=== PATIENT | male | born 1935 | race African-American/Black ===

== ENCOUNTER 2017-10-18 09:41 | Outpatient (RCR) | payer MEDICARE, OTHER ==
[~2017-10-18] VITALS: Ht 177.8 cm; Wt 88.5 kg
[2017-10-21] MEDS ORDERED: Lidocaine 4% Top Soln 50ml TOPIC ONE (09:45)
[2017-11-01] MEDS ORDERED: LAXATIVE5 M1 PO (16:22)
[2017-11-01] MEDS ORDERED: FUROSEMIDE40 MG ORAL (16:22)
[2017-11-01] MEDS ORDERED: ACETAMINOPHEN-1 EAC1 ORAL (16:22)
[2017-11-01] MEDS ORDERED: NORVASC5 MG ORAL (16:22)
[2017-11-01] MEDS ORDERED: SILVADENE20 GM TP (16:22)
[2017-11-01] MEDS ORDERED: COREG12.5 MG ORAL (16:22)
[2017-11-01] MEDS ORDERED: VITAMIN C500 M1 ORAL (16:22)
[2017-11-05] MEDS ORDERED: BISACODYL5 MG ORAL (17:25)
[2017-11-05] MEDS ORDERED: AMBIEN5 MG ORAL (17:26)
[2017-11-05] MEDS ORDERED: TRAMADOL HCL50 MG ORAL (17:28)
[2017-11-05] MEDS ORDERED: DAKIN'S1 APPLIC TOPIC (17:29)
[2017-11-05] MEDS ORDERED: PROTONIX40 MG ORAL (17:30)
[2017-11-05] MEDS ORDERED: ZOSYN 3.373.375 GM/1 IVPB (17:30)
[2017-11-05] MEDS ORDERED: MILK OF MA400 MG/51 ORAL (17:31)
[2017-11-05] MEDS ORDERED: MYLANTA30 M1 PO (17:34)
[2017-11-05] MEDS ORDERED: NAPROXEN250 M1 PO (17:35)
== END 2017-11-12 | disposition home or self-care (01) ==
LOC: WCC 09:41
DX: L97.822 Non-pressure chronic ulcer of other part of left lower leg with fat layer exposed (principal); I87.312 Chronic venous hypertension (idiopathic) with ulcer of left lower extremity; I70.202 Unspecified atherosclerosis of native arteries of extremities, left leg; L03.116 Cellulitis of left lower limb; L97.823 Non-pressure chronic ulcer of other part of left lower leg with necrosis of muscle; I10 Essential (primary) hypertension
CPT/HCPCS: 11042; 11043; 11045; 11046; 29580; 87070; 87181; 87205

== ENCOUNTER 2017-10-25 10:59 | Outpatient (CLI) | payer MEDICARE, OTHER ==
[2017-10-25 12:10] LABS: BASOPHILS % (AUTO) 1.1 % (0.0-2.0); EOSINOPHILS % (AUTO) 2.2 % (0.0-3.0); HEMATOCRIT 32.5 % (42.0-52.0); HEMOGLOBIN 10.1 G/DL (14.2-18.0); LYMPHOCYTES % (AUTO) 15.6 % (20.0-45.0); MEAN CORPUSCULAR VOLUME 84 FL (80-99); MONOCYTES % (AUTO) 10.7 % (1.0-10.0); NEUTROPHILS % (AUTO) 70.4 % (45.0-75.0); PLATELET COUNT 244 K/UL (150-450); RED BLOOD COUNT 3.88 M/UL (4.70-6.10); RED CELL DISTRIBUTION WIDTH 15.2 % (11.6-14.8); WHITE BLOOD COUNT 6.2 K/UL (4.8-10.8)
[2017-10-25 12:25] LABS: ALANINE AMINOTRANSFERASE 13 U/L (12-78); ALBUMIN 2.7 G/DL (3.4-5.0); ALBUMIN/GLOBULIN RATIO 0.4 (1.0-2.7); ALKALINE PHOSPHATASE 63 U/L (46-116); ANION GAP 9 mmol/L (5-15); ASPARTATE AMINO TRANSFERASE 17 U/L (15-37); BILIRUBIN,TOTAL 0.7 MG/DL (0.2-1.0); BLOOD UREA NITROGEN 15 mg/dL (7-18); CALCIUM 8.7 MG/DL (8.5-10.1); CARBON DIOXIDE 25 MMOL/L (21-32); CHLORIDE 95 MMOL/L (98-107); CREATININE 1.3 MG/DL (0.55-1.30); POTASSIUM 4.7 MMOL/L (3.5-5.1); SODIUM 129 MMOL/L (136-145)
--- NOTE | 2017-10-26 10:55 | Consultation ---
DATE OF CONSULTATION: 10/25/2017 INFECTIOUS DISEASE CONSULTATION CONSULTING PHYSICIAN: Myla Woodall M.D. REQUESTING PHYSICIAN: Og Pena M.D. 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 Recommendation for antibiotics treatment. HISTORY OF PRESENT ILLNESS: The patient is an 82-year-old male with past medical history of noncompliance with medical management, who developed left ankle and leg wound 9 months ago and was followed at [facility], transferred his care to [facility] service and has been evaluated by plastic surgeon for the last couple of visits for his chronic left ankle and leg nonhealing wound. The patient had wound culture done on 10/18/2017. The results of which showed Providencia stuartii, Providencia rettgeri, E. coli and Enterococcus faecalis. Some of his Providencia were resistant to ertapenem. So, Infectious Disease consultation was requested for antibiotics treatment and further management of his left ankle and leg, nonhealing wound. As per report from the caregiver and the nurse, the patient has been noncompliant with his medical treatment of his left ankle wound, which has been interrupted on multiple occasions. He denied any previous treatment with IV antibiotics therapy. He denied also oral antibiotics intake in the past. The patient complained of mild pain in his left ankle and leg with swelling and edema, do probably because of venostasis. So, Infectious Disease consultation was requested after his wound culture grew multiple bacteria, some of them resistant antibiotics for management of his left chronic nonhealing leg wound. PAST MEDICAL HISTORY: Significant for venous stasis, mainly the left lower extremity, noncompliance, and chronic wound nonhealing in the left ankle. PAST SURGICAL HISTORY: Not on record. ALLERGIES: No known drug allergy. MEDICATIONS: Please refer to the list. The patient currently is not on any antimicrobial treatment. SOCIAL HISTORY: He lives at home with caregiver. No recent drugs, tobacco, or alcohol. FAMILY HISTORY: Unable to obtain, the patient is a poor historian, could not provide good history. REVIEW OF SYSTEMS: A 14-point of system reviewed were all negative apart from the one I mentioned above in my History and Physical. PHYSICAL EXAMINATION: GENERAL: Elderly male, lying in bed, awake, alert, hard of hearing. Not in acute distress. VITAL SIGNS: Reviewed and stable. HEENT: Normocephalic and atraumatic. Pupils are reactive to light. Moist oral mucosa. No exudate. NECK: Supple. No lymphadenopathy. CARDIOVASCULAR: Regular rate and rhythm. No murmur or gallop. LUNGS: Clear bilaterally. No wheezing or rhonchi. Normal breathing efforts. ABDOMEN: Soft, nontender, nondistended. Normal bowel sounds. No hepatosplenomegaly or ascites. EXTREMITY: He had left lower extremity cellulitis with skin redness and swelling. He had extensive deep wound from the medial aspect of his left ankle, extend all the way down to below the malleolus in the medial aspect of his left leg. There is exudate with pus on surface and red erythematous border with skin cellulitis and redness surrounding his leg wound. Pulse +1 in the distal pedal area. LABORATORY AND DIAGNOSTIC DATA: Labs showed white count of 6.2, hemoglobin of 10.1 and platelet count of 244. BUN of 15 and creatinine of 1.3. AST of 17 and ALT of 13. Microbiology, wound culture on 10/18/2017 of the left leg and ankle grew Providencia stuartii, Providencia rettgeri, E. coli and Enterococcus faecalis. Imaging, none done. ASSESSMENT AND RECOMMENDATION: 1. Left leg and ankle chronic nonhealing wound with infection due to multiple organisms including enterococcus faecalis, E coli, Providencia stuartii, and Providencia rettgeri. I recommend deep tissue biopsy to be sent for culture to confirm his previous culture result, which might be colonization at some point. The patient also will need MRI of the left leg to rule out underlying osteomyelitis as an etiology for nonhealing of his wound. Continue local wound care and dressing change as per the wound care service team. Plan of care was discussed with the caregiver and the patient and both agreed to proceed with this plan. 2. Left ankle and leg cellulitis. Management will be the same once culture is confirmed by skin biopsy. We will initiate antibiotics treatment depending on the MRI result of his left leg. Continue local wound care of the left leg as per the wound care service team. 3. Noncompliance. The patient was advised to follow instruction to improve his chance of recovery he understood. 4. Chronic venous stasis of the lower extremity, mainly in the left. The patient may benefit from leg wrap and to keep leg elevated all the time. The patient understands that antibiotics alone may not close his wound completely, but it will help to improve his chance of recovery. All questions were answered to the caregiver and the patient in detail. Please feel free to call with any question. Isam Dana Woodall DR: SUSAN JOB#: [id number] CC:
== END 2017-10-25 12:59 | disposition home or self-care (01) ==
LOC: LAB 10:59
DX: L08.9 Local infection of the skin and subcutaneous tissue, unspecified (principal); E46 Unspecified protein-calorie malnutrition
CPT/HCPCS: 36415; 80053; 84134; 85025

== ENCOUNTER 2017-11-01 09:32 | Outpatient (CLI) | payer MEDICARE, OTHER ==
[~2017-11-01] VITALS: Ht 177.8 cm; Wt 88.5 kg
--- NOTE | 2017-11-01 13:25 | Diagnostic Imaging Report ---
Indication: Left lower leg wound on medial side Technique: IV administration 24.2 mCi 99m technetium MDP. Whole body and spot images were obtained. Comparison: None. No plain radiographs or other images are available for comparison Findings: There is equivocal very slight asymmetry in the degree of activity on the flow images, with slightly more activity present on the left. Blood pool images likewise demonstrate very slightly relatively increased activity on the left as compared to the right, particularly in the cutaneous regions. On the delayed images, there is subtle slightly increased medial activity on the left which probably represents soft tissue activity. No definite abnormal osseous uptake. Impression: Subtle equivocally slightly increased flow and blood pool activity in the left leg and perhaps slightly prominent medial left leg soft tissue activity on the delayed images. Findings most likely represent cellulitis, given stated clinical history. No findings to suggest osteomyelitis are evident.
[2017-11-01] MEDS ORDERED: Lidocaine 1% Plain 30 ml INJ ONE (13:26)
[2017-11-01] MEDS ORDERED: Heparin 2000 units/Ns 1000ml 1,000 ML ONE (13:26)
--- NOTE | 2017-11-01 14:36 | Diagnostic Imaging Report ---
Indications: Needs long-term IV access Technique: Ultrasound confirms patent compressible left basilic vein. Total sterile technique, including sterile probe cover and sterile gel, hat, mask, sterile gown, large sterile drape, and preparation with 2% chlorhexidine utilized. Local anesthesia with 1% lidocaine. Under real-time ultrasound guidance, puncture basilic vein using 21-gauge needle, documented and archived, passage 0.018 guidewire under direct fluoroscopy, which was used to determine appropriate catheter length, exchange for 5 Greek peel-away sheath. 5 Greek Bard dual-lumen power PICC cut to 47 cm. It was inserted through the peel-away sheath. Peel-away sheath and guidewire removed. Catheter fixed to the skin. Both catheter ports aspirated and flushed. Patient tolerated procedure well, without immediate complication. Digital radiograph documents satisfactory catheter tip position, at the mid superior vena cava. Total fluoroscopy time 0.7 minutes. Total dose area product 74 dGycm2 Total number of images: 1 Impression: Successful placement of left arm PICC under sonographic and fluoroscopic guidance, as described above.
--- NOTE | 2017-11-01 15:31 | Infectious Diseases Prog Note ---
Assessment/Plan Problems: (1) Leg wound, left Assessment & Plan: infected with E.faecalis, Morganella morgagnii, and proteus terry , S/P deep skin biopsy culture. will start zosyn empiric coverage to cover all these organisms , and send blood culture to rule out bacteremia . will add vancomycin to cover for possible MRSA . wound care team will be following the patient (2) Left leg cellulitis Assessment & Plan: management is the same as above, with antibiotics and local wound care, keep leg elevated all the time (3) Venous stasis of lower extremity Assessment & Plan: will order venous doppler to rule out DVT , keep legs elevated all the time while in bed Subjective Allergies: Coded Allergies: NO KNOWN DRUG ALLERGIES (Verified Allergy, Unknown, 10/21/17) Myla Woodall M.D. Nov 01, 2017 15:31
[2017-11-01] MEDS ORDERED: Piperacillin/Tazobactam 3.375 GM in NS 110 ML IVPB SCH (15:45)
[2017-11-01] MEDS ORDERED: VITAMIN C500 M1 ORAL (16:22)
[2017-11-01] MEDS ORDERED: SILVADENE20 GM TP (16:22)
[2017-11-01] MEDS ORDERED: COREG12.5 MG ORAL (16:22)
[2017-11-01] MEDS ORDERED: LAXATIVE5 M1 PO (16:22)
[2017-11-01] MEDS ORDERED: FUROSEMIDE40 MG ORAL (16:22)
[2017-11-01] MEDS ORDERED: NORVASC5 MG ORAL (16:22)
[2017-11-01] MEDS ORDERED: ACETAMINOPHEN-1 EAC1 ORAL (16:22)
== END 2017-11-01 11:32 | disposition home or self-care (01) ==
LOC: NUM 09:32
DX: E46 Unspecified protein-calorie malnutrition (principal); B99.9 Unspecified infectious disease; M86.9 Osteomyelitis, unspecified; L03.116 Cellulitis of left lower limb; I87.8 Other specified disorders of veins; Z79.899 Other long term (current) drug therapy
CPT/HCPCS: 36569; 76937; 78315; A4641; J1644; J2001

== ENCOUNTER 2017-11-01 12:26 | Inpatient (IN) | payer MEDICARE, OTHER ==
[~2017-11-01] VITALS: Ht 180.3 cm; Wt 86.6 kg
[2017-11-01] MEDS ORDERED: Heparin Sod 1000 units/ml 10ml IV SCH (13:00)
[2017-11-01] MEDS ORDERED: Lidocaine 1% Plain 30 ml INJ SCH (13:00)
[2017-11-01] MEDS ORDERED: Bisacodyl EC 5mg tab ORAL PRN ×2 (16:15)
[2017-11-01] MEDS ORDERED: Zolpidem 5mg tab ORAL PRN (16:15)
[2017-11-01] MEDS ORDERED: Milk of Magnesia 30ml Ud ORAL PRN (16:15)
--- NOTE | 2017-11-01 16:19 | Consultation ---
Consult Note Consult Note CONSULTING PHYSICIAN: Myla Woodall M.D. REQUESTING PHYSICIAN: Og Pena M.D. 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 HISTORY OF PRESENT ILLNESS: The patient is an 82-year-old male with past medical history of chronic left leg wound, and venous stasis , and noncompliance with medical management, who was followed at [facility] for his left leg wound , has transferred his care to [facility] service for further care and management of his chronic left ankle and leg nonhealing wound. The patient had wound culture done on 10/18/2017. The results of which showed Providencia stuartii, Providencia rettgeri, E. coli and Enterococcus faecalis. Some of his Providencia were resistant to ertapenem. As per report from the caregiver and the nurse, the patient has been noncompliant with his medical treatment of his left ankle wound, which has been interrupted on multiple occasions. He denied any previous treatment with IV antibiotics therapy. He denied also oral antibiotics intake in the past. The patient complained of mild pain in his left ankle and leg with edema, because of venostasis. no significant drainage from the wound or foul smell. patient underwent a deep skin biopsy for culture, which grew Morganella morgagnii, proteus terry and enterococcus faecalis. So, Infectious Disease consultation was requested after his wound infection due to multiple bacteria, for antibiotics treatment and further management of his left chronic nonhealing leg wound. PAST MEDICAL HISTORY: Significant for venous stasis, mainly the left lower extremity, noncompliance, and chronic wound nonhealing in the left ankle. PAST SURGICAL HISTORY: Not on record. ALLERGIES: No known drug allergy. MEDICATIONS: Please refer to the list. The patient currently is not on any antimicrobial treatment. SOCIAL HISTORY: He lives at home with caregiver. No recent drugs, tobacco, or alcohol. FAMILY HISTORY: Unable to obtain, the patient is a poor historian, could not provide good history. REVIEW OF SYSTEMS: A 14-point of system reviewed were all negative apart from the one I mentioned above in my History and Physical. PHYSICAL EXAMINATION: GENERAL: Elderly male, lying in bed, awake, alert, hard of hearing. Not in acute distress. VITAL SIGNS: Reviewed and stable. HEENT: Normocephalic and atraumatic. Pupils are reactive to light. Moist oral mucosa. No exudate. NECK: Supple. No lymphadenopathy. CARDIOVASCULAR: Regular rate and rhythm. No murmur or gallop. LUNGS: Clear bilaterally. No wheezing or rhonchi. Normal breathing efforts. ABDOMEN: Soft, nontender, nondistended. Normal bowel sounds. No hepatosplenomegaly or ascites. EXTREMITY: He had left lower extremity cellulitis with skin redness and swelling. He had extensive deep wound from the medial aspect of his left ankle, extend all the way down to below the malleolus in the medial aspect of his left leg. There is exudate with pus on surface and red erythematous border with skin cellulitis and redness surrounding his leg wound. Pulse +1 in the distal pedal area. LABORATORY AND DIAGNOSTIC DATA: Labs from 10/25/17 showed: white count of 6.2, hemoglobin of 10.1 and platelet count of 244. BUN of 15 and creatinine of 1.3. AST of 17 and ALT of 13. Microbiology; wound culture on 10/18/2017 of the left leg and ankle grew Providencia stuartii, Providencia rettgeri, E. coli and Enterococcus faecalis. deep skin biopsy culture on 10/25/17 grew: Morganella morgagnii, proteus terry and enterococcus faecalis Imaging: bone scan of the left leg: Subtle equivocally slightly increased flow and blood pool activity in the left leg and perhaps slightly prominent medial left leg soft tissue activity on the delayed images. Findings most likely represent cellulitis, given stated clinical history. No findings to suggest osteomyelitis are evident. Assessment/Plan 1. Left leg and ankle chronic nonhealing wound with infection due to multiple organisms including Morganella morgagnii, proteus terry and enterococcus faecalis most likely real since grew from deep tissue biopsy. I will start him on zosyn and vancomycin treatment for now, and send blood culture . MRI of the left leg to rule out underlying osteomyelitis couldn't be done due to pacemaker, but bone scan was done instead which showed no evidence of osteomyelitis. will order venous doppler to rule DVT in the legs . Continue local wound care and dressing change as per the wound care service team. Plan of care was discussed with the caregiver and the patient and both agreed to proceed with this plan. 2. Left ankle and leg cellulitis. Management will be the same as above. Continue local wound care of the left leg as per the wound care service team. 3. Chronic venous stasis of the lower extremity, mainly in the left. The patient may benefit from leg wrap and to keep leg elevated all the time. The patient understands that antibiotics alone may not close his wound completely, but it will help to improve his chance of recovery. All questions were answered to the caregiver and the patient in detail. infectious disease will continue to follow , Please feel free to call with any question. Myla Woodall M.D. Nov 01, 2017 16:19
[2017-11-01] MEDS ORDERED: VITAMIN C500 M1 ORAL (16:22)
[2017-11-01] MEDS ORDERED: COREG12.5 MG ORAL (16:22)
[2017-11-01] MEDS ORDERED: SILVADENE20 GM TP (16:22)
[2017-11-01] MEDS ORDERED: NORVASC5 MG ORAL (16:22)
[2017-11-01] MEDS ORDERED: ACETAMINOPHEN-1 EAC1 ORAL (16:22)
[2017-11-01] MEDS ORDERED: LAXATIVE5 M1 PO (16:22)
[2017-11-01] MEDS ORDERED: FUROSEMIDE40 MG ORAL (16:22)
[2017-11-01 16:27] VITALS: BP 117/58
[2017-11-01 16:38] LABS: BASOPHILS % (AUTO) 1.1 % (0.0-2.0); EOSINOPHILS % (AUTO) 3.5 % (0.0-3.0); HEMATOCRIT 32.6 % (42.0-52.0); HEMOGLOBIN 10.5 G/DL (14.2-18.0); LYMPHOCYTES % (AUTO) 13.5 % (20.0-45.0); MEAN CORPUSCULAR VOLUME 85 FL (80-99); MONOCYTES % (AUTO) 12.1 % (1.0-10.0); NEUTROPHILS % (AUTO) 69.8 % (45.0-75.0); PLATELET COUNT 360 K/UL (150-450); RED BLOOD COUNT 3.85 M/UL (4.70-6.10); RED CELL DISTRIBUTION WIDTH 15.3 % (11.6-14.8); WHITE BLOOD COUNT 6.7 K/UL (4.8-10.8)
[2017-11-01 16:51] LABS: ANION GAP 9 mmol/L (5-15); BLOOD UREA NITROGEN 21 mg/dL (7-18); CALCIUM 8.9 MG/DL (8.5-10.1); CARBON DIOXIDE 28 MMOL/L (21-32); CHLORIDE 95 MMOL/L (98-107); CREATININE 1.4 MG/DL (0.55-1.30); SODIUM 132 MMOL/L (136-145)
[2017-11-01] MEDS: Piperacillin/Tazobactam 3.375 GM in NS 110 ML IVPB SCH (18:33)
--- NOTE | 2017-11-01 20:30 | History and Physical Report ---
DATE OF ADMISSION: 11/01/2017 REASON FOR ADMISSION: Wound infection. HISTORY OF PRESENT ILLNESS: This is an 82-year-old male, who has been cared for at the wound care center. The patient was noted to have an infected wound. He had been admitted for nonhealing wound. The patient with noted Morganella on culture including Proteus and enterococcus. The patient now being admitted. ID consultation was obtained. The patient has chronic left leg wound and venous stasis, noncompliant with medical management. The patient apparently had been followed by an outside wound care center. The patient was transferred to [place] for ongoing care and management. The patient had a wound culture done on 10/18/2017 showing the above multi-drug resistance noted. The patient is cared for at home with caregivers. Apparently, noncompliant with therapy at present. The patient complains of pain in left ankle with some edema. The patient does have significant venous stasis. PAST MEDICAL HISTORY: Notable for chronic venous stasis, chronic leg wound. The patient also has history of hypertension and constipation. MEDICATIONS: Reviewed. ALLERGIES: Reviewed. SOCIAL HISTORY: The patient is a nonsmoker and nondrinker. The patient does have caregivers since the patient is retired. FAMILY HISTORY: Noncontributory, as above. REVIEW OF SYSTEMS: All 10 points reviewed, difficult to fully obtain. PHYSICAL EXAMINATION: GENERAL: A well-developed male, somewhat confused, advanced age, hard of hearing. VITAL SIGNS: Blood pressure 117/58, 78, respiratory rate 28, and temperature 97.2 degrees. HEENT: Negative. Extraocular movements are grossly intact. NECK: Supple. LUNGS: With moderate air entry, symmetric. No rhonchi or wheezes. CARDIAC: S1 and S2. Regular rate and rhythm without murmurs, rubs, or gallops. ABDOMEN: Soft, nontender, and nondistended. EXTREMITIES: Left lower extremity with cellulitic changes. SKIN: Redness and some swelling. The patient has some pus noted in the surface with some erythematous changes as well. NEUROLOGIC: Otherwise grossly nonfocal, weak diffusely. LABORATORY AND DIAGNOSTIC DATA: Labs are reviewed. White count 6.7, hemoglobin 10, hematocrit 32, and platelet count noted. Chemistries; sodium 132, BUN 21, creatinine 1.4. Blood sugar is 172. C-reactive protein 7.6. The sedimentation rate is pending. IMPRESSION: 1. Cellulitis, possible deep seated wound infection 2. Anemia. 3. Acute renal failure. 4. Advanced age. 5. Hypertension. 6. Hyponatremia. 7. Hypoglycemia. RECOMMENDATIONS: Supportive care. Monitor clinically. Monitor labs. Culture of wound. ID evaluation, antibiotics and resume home medications. DVT prophylaxis. Check venous ultrasound. Consider further imaging and maintain wound care management. Jose Angel Benites M.D. DR: IDA JOB#: [id number] CC: IDALIA
[2017-11-01 20:48] VITALS: BP 120/62
[2017-11-01] MEDS: Furosemide 80mg tab ORAL SCH (20:55)
[2017-11-01] MEDS: Carvedilol 12.5mg tab ORAL SCH (20:55)
[2017-11-01] MEDS: Vancomycin 500mg/D5W 110ml IVPB SCH ×2 (22:36)
[2017-11-01] MEDS: Tylenol #3 tab (300mg/30mg) ORAL PRN (23:54)
[2017-11-02] VITALS (7 sets, daily range): BP systolic 110–136; BP diastolic 52–76
[2017-11-02] MEDS: Piperacillin/Tazobactam 3.375 GM in NS 110 ML IVPB SCH ×4 (01:28→23:58)
[2017-11-02] MEDS: Tylenol #3 tab (300mg/30mg) ORAL PRN ×4 (04:12→21:27)
--- NOTE | 2017-11-02 08:17 | General Progress Note ---
Assessment/Plan Assessment/Plan IMPRESSION: 1. Cellulitis, possible deep seated wound infection 2. Anemia. 3. Acute renal failure. 4. Advanced age. 5. Hypertension. 6. Hyponatremia. 7. Hypoglycemia. PLAN care noted wound care ID follow up pain control monitor for change impression, plan, and exam edited and reviewed in detail care discussed with RN Subjective Allergies: Coded Allergies: NO KNOWN DRUG ALLERGIES (Verified Allergy, Unknown, 10/21/17) Subjective care noted has pain wounds noted Objective Last 24 Hour Vital Signs Date Time Temp Pulse Resp B/P (MAP) Pulse Ox O2 Delivery O2 Flow Rate FiO2 11/02/17 04:00 97.9 76 18 119/68 (85) 100 97.9 11/02/17 00:00 97.7 62 18 115/71 (86) 99 97.7 11/01/17 21:00 Room Air 11/01/17 20:55 64 120/62 11/01/17 20:48 97.3 64 18 120/62 (81) 99 97.3 11/01/17 17:28 Room Air 11/01/17 16:27 97.2 74 20 117/58 (77) 100 97.2 Intake and Output 11/01/17 11/02/17 19:00 07:00 Intake Total 240 ml 302.5 ml Output Total 1950 ml Balance 240 ml -1647.5 ml Intake Oral 240 ml IV Total 302.5 ml Output Urine Total 1950 ml # Voids 1 Laboratory Tests 11/01/17 16:25: White Blood Count 6.7, Red Blood Count 3.85L, Hemoglobin 10.5L, Hematocrit 32.6L , Mean Corpuscular Volume 85, Mean Corpuscular Hemoglobin 27.4, Mean Corpuscular Hemoglobin Concent 32.3, Red Cell Distribution Width 15.3H, Platelet Count 360, Mean Platelet Volume 4.3L, Neutrophils (%) (Auto) 69.8, Lymphocytes (%) (Auto) 13.5L, Monocytes (%) (Auto) 12.1H, Eosinophils (%) (Auto ) 3.5H, Basophils (%) (Auto) 1.1, Erythrocyte Sedimentation Rate 58H, Sodium Level 132L, Potassium Level 4.0, Chloride Level 95L, Carbon Dioxide Level 28, Anion Gap 9, Blood Urea Nitrogen 21H, Creatinine 1.4H, Estimat Glomerular Filtration Rate , Glucose Level 172H, Calcium Level 8.9, C-Reactive Protein, Quantitative 7.6H Height (Feet): 5 Height (Inches): 11.00 Weight (Pounds): 192 Objective HEENT: Negative. Extraocular movements are grossly intact. NECK: Supple. LUNGS: With moderate air entry, symmetric. No rhonchi or wheezes. CARDIAC: S1 and S2. Regular rate and rhythm without murmurs, rubs, or gallops. ABDOMEN: Soft, nontender, and nondistended. EXTREMITIES: Left lower extremity with cellulitic changes. SKIN: Redness and some swelling. The patient has some pus noted in the surface with some erythematous changes as well. NEUROLOGIC: Otherwise grossly nonfocal, weak diffusely. Jose Angel Benites MD Nov 02, 2017 08:17
[2017-11-02] MEDS: Ascorbic Acid 500mg tab ORAL SCH (09:07)
[2017-11-02] MEDS: Vancomycin 500mg/D5W 110ml IVPB SCH ×6 (09:31→21:28)
[2017-11-02] MEDS: Carvedilol 12.5mg tab ORAL SCH ×2 (10:36→21:28)
[2017-11-02] MEDS: Furosemide 80mg tab ORAL SCH ×2 (10:36→21:28)
[2017-11-02] MEDS ORDERED: Naproxen 375mg tab ORAL PRN (12:30)
--- NOTE | 2017-11-02 16:55 | Infectious Diseases Prog Note ---
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 continue zosyn and vancomycin treatment empirically pending blood culture . bone scan showed no evidence of osteomyelitis. await venous doppler to rule DVT in the legs . Continue local wound care and dressing change as per the wound care service team. (2) Left leg cellulitis Assessment & Plan: management is the same as above (3) Venous stasis of lower extremity Assessment & Plan: venous doppler of the legs is pending , keep legs elevated all the time while in bed . Subjective Constitutional: Reports: no symptoms HEENT: Reports: no symptoms Respiratory: Reports: no symptoms Breasts: Reports: no symptoms Cardiovascular: Reports: no symptoms Gastrointestinal/Abdominal: Reports: no symptoms Genitourinary: Reports: no symptoms Neurologic: Reports: no symptoms Psychiatric: Reports: no symptoms Skin: Reports: ulcer - of the left leg with exudate Endocrine: Reports: no symptoms Hematologic: Reports: no symptoms Musculoskeletal: Reports: no symptoms Allergies: Coded Allergies: NO KNOWN DRUG ALLERGIES (Verified Allergy, Unknown, 10/21/17) Objective Vital Signs Last 24 Hour Vital Signs Date Time Temp Pulse Resp B/P (MAP) Pulse Ox O2 Delivery O2 Flow Rate FiO2 11/02/17 16:07 98.6 75 20 118/62 (80) 97 98.6 11/02/17 11:41 98.0 78 20 127/67 (87) 100 98.0 11/02/17 10:37 73 136/76 11/02/17 10:36 73 136/76 11/02/17 10:31 136/76 (96) 11/02/17 09:00 Room Air 11/02/17 08:40 97.8 73 20 110/52 (71) 97 97.8 11/02/17 04:00 97.9 76 18 119/68 (85) 100 97.9 11/02/17 00:00 97.7 62 18 115/71 (86) 99 97.7 11/01/17 21:00 Room Air 11/01/17 20:55 64 120/62 11/01/17 20:48 97.3 64 18 120/62 (81) 99 97.3 11/01/17 17:28 Room Air Height (Feet): 5 Height (Inches): 11.00 Weight (Pounds): 192 General Appearance: WD/WN, no acute distress HEENT: normocephalic, atraumatic, anicteric, mucous membranes moist, EOMI, pharynx normal, supple, no JVD Respiratory/Chest: chest wall non-tender, lungs clear, normal breath sounds, no respiratory distress, no accessory muscle use Cardiovascular: normal peripheral pulses, normal rate, regular rhythm, no gallop/murmur, no JVD Abdomen: normal bowel sounds, soft, non tender, no organomegaly, non distended , no mass, no scars Extremities: no cyanosis, no clubbing Skin: no rash, no lesions, ulcers - of the left medial leg with exudate and skin redness on the border , no significant drainage Neurologic/Psychiatric: alert, oriented x 3, responsive Lymphatic: no neck adenopathy, no groin adenopathy Musculoskeletal: normal muscle bulk, no effusion Microbiology Date/Time Source Procedure Growth Status 11/01/17 17:45 Wound Gram Stain - Final Resulted 11/01/17 17:45 Wound Wound Culture - Preliminary Resulted Current Medications Medications (Trade) Dose Ordered Sig/Mine Route PRN Reason Start Time Stop Time Status Last Admin Dose Admin Acetaminophen (Tylenol) 650 mg Q4H PRN ORAL Mild Pain/Temp > 100.5 11/01/17 16:15 12/01/17 16:14 Acetaminophen/ Codeine Phosphate (Tylenol #3) 1 tab Q4H PRN ORAL Pain Scale (6-10) 11/01/17 16:15 11/08/17 16:14 11/02/17 16:16 Al Hydroxide/Mg Hydroxide (Mylanta) 30 ml Q4H PRN ORAL INDIGESTION 11/01/17 16:15 12/01/17 16:14 Amlodipine Besylate (Norvasc) 5 mg DAILY ORAL 11/02/17 09:00 12/02/17 08:59 11/02/17 10:37 Ascorbic Acid (Vitamin C) 500 mg DAILY ORAL 11/02/17 09:00 12/02/17 08:59 11/02/17 09:07 Bisacodyl (Dulcolax) 5 mg TIDPRN PRN ORAL Constipation 11/01/17 16:15 12/01/17 16:14 Carvedilol (Coreg) 12.5 mg EVERY 12 HOURS ORAL 11/01/17 21:00 12/01/17 20:59 11/02/17 10:36 Chlorhexidine Gluconate (Jennifer-Hex 2%) 1 applic DAILY@2000 TOPIC 11/02/17 20:00 12/02/17 19:59 Furosemide (Lasix) 80 mg EVERY 12 HOURS ORAL 11/01/17 21:00 12/01/17 20:59 11/02/17 10:36 Magnesium Hydroxide (Mom) 30 ml DAILYPRN PRN ORAL Constipation 11/01/17 16:15 12/01/17 16:14 Naproxen (Naprosyn) 1 mg Q4H PRN ORAL BREAKTHROUGH PAIN 11/02/17 12:30 12/02/17 12:29 Pantoprazole (Protonix) 40 mg DAILY ORAL 11/02/17 09:00 12/02/17 08:59 11/02/17 09:07 Piperacillin Sod/ Tazobactam Sod 3.375 gm/Sodium Chloride 110 ml @ 27.5 mls/hr Q8H IVPB 11/01/17 17:00 11/08/17 16:59 11/02/17 10:41 Sodium Hypochlorite (Dakin's Quarter Strength) 1 applic Q24H TOPIC 11/03/17 21:00 12/03/17 20:59 Vancomycin HCl (Vanco rx to dose) 1 ea DAILY PRN MISC Per rx protocol 11/01/17 16:00 12/01/17 15:59 Vancomycin HCl 500 mg/Dextrose 110 ml @ 110 mls/hr Q12H IVPB 11/01/17 21:00 11/06/17 20:59 11/02/17 09:31 Zolpidem Tartrate (Ambien) 5 mg HSPRN PRN ORAL Insomnia 11/01/17 16:15 11/08/17 16:14 Myla Woodall M.D. Nov 02, 2017 16:55
[2017-11-02 18:27] LABS: ALANINE AMINOTRANSFERASE 11 U/L (12-78); ALBUMIN 2.5 G/DL (3.4-5.0); ALBUMIN/GLOBULIN RATIO 0.4 (1.0-2.7); ALKALINE PHOSPHATASE 66 U/L (46-116); ANION GAP 7 mmol/L (5-15); ASPARTATE AMINO TRANSFERASE 14 U/L (15-37); BASOPHILS % (AUTO) 1.5 % (0.0-2.0); BILIRUBIN,TOTAL 0.6 MG/DL (0.2-1.0); BLOOD UREA NITROGEN 17 mg/dL (7-18); CALCIUM 8.6 MG/DL (8.5-10.1); CARBON DIOXIDE 30 MMOL/L (21-32); CHLORIDE 97 MMOL/L (98-107); CREATININE 1.5 MG/DL (0.55-1.30); EOSINOPHILS % (AUTO) 4.5 % (0.0-3.0); HEMATOCRIT 31.6 % (42.0-52.0); LYMPHOCYTES % (AUTO) 17.4 % (20.0-45.0); MEAN CORPUSCULAR VOLUME 86 FL (80-99); MONOCYTES % (AUTO) 12.9 % (1.0-10.0); NEUTROPHILS % (AUTO) 63.8 % (45.0-75.0); PLATELET COUNT 324 K/UL (150-450); POTASSIUM 3.5 MMOL/L (3.5-5.1); RED BLOOD COUNT 3.66 M/UL (4.70-6.10); RED CELL DISTRIBUTION WIDTH 15.4 % (11.6-14.8); SODIUM 134 MMOL/L (136-145); WHITE BLOOD COUNT 5.6 K/UL (4.8-10.8)
--- NOTE | 2017-11-02 18:29 | Consultation ---
History of Present Illness General Date patient seen: Nov 02, 2017 Time patient seen: 18:21 Reason for Consultation: LLE ulcer Present Illness HPI Patient is an 82 yom known to me from the outpatient wound [place] at [facility] [place]. He has had this ulcer for over a year and has undergone endo vein ablation over a month ago. He had deep tissue biopsy + for multiple organisms and is being followed by ID. He had recent worsening in the drainage as well as wound bed quality. His bone scan was - for osteomyelitis. Given the worsening of his wound and recent culture results decision was to admit him to hospital for further work up and IV antibiotics. Allergies: Coded Allergies: NO KNOWN DRUG ALLERGIES (Verified Allergy, Unknown, 10/21/17) Medication History Scheduled Amlodipine Besylate (Norvasc), 5 MG ORAL DAILY, (Reported) Ascorbic Acid* (Vitamin C*), 500 MG ORAL DAILY, (Reported) Bisacodyl (Laxative), 5 MG PO TID, (Reported) Carvedilol (Coreg), 12.5 MG ORAL EVERY 12 HOURS, (Reported) Furosemide* (Lasix*), 80 MG ORAL TWICE A DAY, (Reported) Scheduled PRN Acetaminophen With Codeine (T#3) (Tylenol #3 Tab*), 1 TAB ORAL Q4H PRN for For Pain, (Reported) Miscellaneous Medications Silver Sulfadiazine (Silvadene), 20 GM TP, (Reported) Patient History History Provided By: Patient, Medical Record Healthcare decision maker Resuscitation status Full Code Advanced Directive on File No Past Medical/Surgical History Past Medical/Surgical History: (1) Hypertension (2) Arrhythmia (3) Venous stasis of lower extremity Review of Systems Constitutional: Reports: no symptoms Respiratory: Reports: no symptoms Cardiovascular: Reports: edema Gastrointestinal: Reports: no symptoms Genitourinary: Reports: incontinence Skin: Reports: see HPI Psychiatric: Reports: no symptoms Hematologic/Lymphatic: Reports: anemia Physical Exam General Appearance: no apparent distress, alert Lines, tubes and drains: PICC Respiratory/Chest: no respiratory distress Abdomen: non tender, soft Extremities: moderate edema Skin Exam: other - Ulcer of the LLE with some fibrotic debris at the base. Areas of granulation tissue present. Periskin is in fair condition. Swelling is present. Musculoskeletal: normal muscle bulk Last 24 Hour Vital Signs Date Time Temp Pulse Resp B/P (MAP) Pulse Ox O2 Delivery O2 Flow Rate FiO2 11/02/17 16:07 98.6 75 20 118/62 (80) 97 98.6 11/02/17 11:41 98.0 78 20 127/67 (87) 100 98.0 11/02/17 10:37 73 136/76 11/02/17 10:36 73 136/76 11/02/17 10:31 136/76 (96) 11/02/17 09:00 Room Air 11/02/17 08:40 97.8 73 20 110/52 (71) 97 97.8 11/02/17 04:00 97.9 76 18 119/68 (85) 100 97.9 11/02/17 00:00 97.7 62 18 115/71 (86) 99 97.7 11/01/17 21:00 Room Air 11/01/17 20:55 64 120/62 11/01/17 20:48 97.3 64 18 120/62 (81) 99 97.3 Intake and Output 11/01/17 11/02/17 19:00 07:00 Intake Total 240 ml 302.5 ml Output Total 1950 ml Balance 240 ml -1647.5 ml Intake Oral 240 ml IV Total 302.5 ml Output Urine Total 1950 ml # Voids 1 Laboratory Tests Test 11/02/17 17:30 White Blood Count Pending Red Blood Count Pending Hemoglobin Pending Hematocrit Pending Mean Corpuscular Volume Pending Mean Corpuscular Hemoglobin Pending Mean Corpuscular Hemoglobin Concent Pending Red Cell Distribution Width Pending Platelet Count Pending Mean Platelet Volume Pending Neutrophils (%) (Auto) Pending Lymphocytes (%) (Auto) Pending Monocytes (%) (Auto) Pending Eosinophils (%) (Auto) Pending Basophils (%) (Auto) Pending Sodium Level Pending Potassium Level Pending Chloride Level Pending Carbon Dioxide Level Pending Blood Urea Nitrogen Pending Creatinine Pending Estimat Glomerular Filtration Rate Pending Glucose Level Pending Calcium Level Pending Total Bilirubin Pending Aspartate Amino Transf (AST/SGOT) Pending Alanine Aminotransferase (ALT/SGPT) Pending Alkaline Phosphatase Pending Total Protein Pending Albumin Pending Globulin Pending Height (Feet): 5 Height (Inches): 11.00 Weight (Pounds): 192 Medications Current Medications Medications (Trade) Dose Ordered Sig/Mine Route PRN Reason Start Time Stop Time Status Last Admin Dose Admin Acetaminophen (Tylenol) 650 mg Q4H PRN ORAL Mild Pain/Temp > 100.5 11/01/17 16:15 12/01/17 16:14 Acetaminophen/ Codeine Phosphate (Tylenol #3) 1 tab Q4H PRN ORAL Pain Scale (6-10) 11/01/17 16:15 11/08/17 16:14 11/02/17 16:16 Al Hydroxide/Mg Hydroxide (Mylanta) 30 ml Q4H PRN ORAL INDIGESTION 11/01/17 16:15 12/01/17 16:14 Amlodipine Besylate (Norvasc) 5 mg DAILY ORAL 11/02/17 09:00 12/02/17 08:59 11/02/17 10:37 Ascorbic Acid (Vitamin C) 500 mg DAILY ORAL 11/02/17 09:00 12/02/17 08:59 11/02/17 09:07 Bisacodyl (Dulcolax) 5 mg TIDPRN PRN ORAL Constipation 11/01/17 16:15 12/01/17 16:14 Carvedilol (Coreg) 12.5 mg EVERY 12 HOURS ORAL 11/01/17 21:00 12/01/17 20:59 11/02/17 10:36 Chlorhexidine Gluconate (Jennifer-Hex 2%) 1 applic DAILY@2000 TOPIC 11/02/17 20:00 12/02/17 19:59 Furosemide (Lasix) 80 mg EVERY 12 HOURS ORAL 11/01/17 21:00 12/01/17 20:59 11/02/17 10:36 Magnesium Hydroxide (Mom) 30 ml DAILYPRN PRN ORAL Constipation 11/01/17 16:15 12/01/17 16:14 Naproxen (Naprosyn) 1 mg Q4H PRN ORAL BREAKTHROUGH PAIN 11/02/17 12:30 12/02/17 12:29 Pantoprazole (Protonix) 40 mg DAILY ORAL 11/02/17 09:00 12/02/17 08:59 11/02/17 09:07 Piperacillin Sod/ Tazobactam Sod 3.375 gm/Sodium Chloride 110 ml @ 27.5 mls/hr Q8H IVPB 11/01/17 17:00 11/08/17 16:59 11/02/17 17:15 Sodium Hypochlorite (Dakin's Quarter Strength) 1 applic Q24H TOPIC 11/03/17 21:00 12/03/17 20:59 Vancomycin HCl (Vanco rx to dose) 1 ea DAILY PRN MISC Per rx protocol 11/01/17 16:00 12/01/17 15:59 Vancomycin HCl 500 mg/Dextrose 110 ml @ 110 mls/hr Q12H IVPB 11/01/17 21:00 11/06/17 20:59 11/02/17 09:31 Zolpidem Tartrate (Ambien) 5 mg HSPRN PRN ORAL Insomnia 11/01/17 16:15 11/08/17 16:14 Assessment/Plan Status: stable Assessment/Plan Patient to benefit from leg elevation as well as IV antibiotic therapy. Will order arterial doppler studies. Will continue with dakins wet to dry for now and switch to alginate UNNA boot if arterial dopplers show no significant stenosis. Patient will likely need to go to SNF for continuation of IV antibiotics and wound care. No urgent surgical intervention necessary at this time. Og Pena MD Nov 02, 2017 18:29
[2017-11-02] MEDS: Dyna-Hex 2% Top Sol 2oz TOPIC SCH (21:28)
[2017-11-02] MEDS: Dakin's 0.125% Soln (Quarter Strength) 16oz TOPIC SCH (21:29)
[2017-11-03] VITALS: BP 116/59
[2017-11-03 04:49] VITALS: BP 119/66
[2017-11-03 08:00] VITALS: BP 123/74
[2017-11-03] MEDS: Carvedilol 12.5mg tab ORAL SCH ×2 (08:57→20:25)
[2017-11-03] MEDS: Ascorbic Acid 500mg tab ORAL SCH (08:58)
[2017-11-03] MEDS: Tylenol #3 tab (300mg/30mg) ORAL PRN ×2 (08:58→20:28)
[2017-11-03] MEDS: Furosemide 80mg tab ORAL SCH ×2 (08:58→20:25)
[2017-11-03] MEDS: Piperacillin/Tazobactam 3.375 GM in NS 110 ML IVPB SCH ×2 (09:07→17:26)
--- NOTE | 2017-11-03 10:46 | General Progress Note ---
Assessment/Plan Assessment/Plan IMPRESSION: 1. Cellulitis, possible deep seated wound infection 2. Anemia. 3. Acute renal failure. 4. Advanced age. 5. Hypertension. 6. Hyponatremia. 7. Hypoglycemia. PLAN care noted wound care noted still needs further ID follow up noted pain control monitor for change impression, plan, and exam edited and reviewed in detail care discussed with RN Subjective Allergies: Coded Allergies: NO KNOWN DRUG ALLERGIES (Verified Allergy, Unknown, 10/21/17) Subjective care noted has pain noted agitation Objective Last 24 Hour Vital Signs Date Time Temp Pulse Resp B/P (MAP) Pulse Ox O2 Delivery O2 Flow Rate FiO2 11/03/17 09:00 Room Air 11/03/17 08:58 78 123/74 11/03/17 08:57 78 123/74 11/03/17 08:00 97.5 78 18 123/74 (90) 100 97.5 11/03/17 04:49 97.3 78 18 119/66 (83) 98 97.3 11/03/17 00:00 97.9 70 17 116/59 (78) 96 97.9 11/02/17 21:28 70 113/68 11/02/17 21:00 Room Air 11/02/17 20:00 97.5 70 16 113/68 (83) 98 97.5 11/02/17 16:07 98.6 75 20 118/62 (80) 97 98.6 11/02/17 11:41 98.0 78 20 127/67 (87) 100 98.0 Intake and Output 11/02/17 11/03/17 19:00 07:00 Intake Total 3887.5 ml 302.5 ml Output Total 2750 ml Balance 1137.5 ml 302.5 ml Intake Oral 960 ml IV Total 2927.5 ml 302.5 ml Output Urine Total 2750 ml # Voids 2 5 # Bowel Movements 2 Laboratory Tests 11/02/17 17:30: White Blood Count 5.6, Red Blood Count 3.66L, Hemoglobin 10.0L, Hematocrit 31.6L , Mean Corpuscular Volume 86, Mean Corpuscular Hemoglobin 27.3, Mean Corpuscular Hemoglobin Concent 31.6L, Red Cell Distribution Width 15.4H, Platelet Count 324, Mean Platelet Volume 4.5L, Neutrophils (%) (Auto) 63.8, Lymphocytes (%) (Auto) 17.4L, Monocytes (%) (Auto) 12.9H, Eosinophils (%) (Auto ) 4.5H, Basophils (%) (Auto) 1.5, Sodium Level 134L, Potassium Level 3.5, Chloride Level 97L, Carbon Dioxide Level 30, Anion Gap 7, Blood Urea Nitrogen 17 , Creatinine 1.5H, Estimat Glomerular Filtration Rate , Glucose Level 128H, Calcium Level 8.6, Total Bilirubin 0.6, Aspartate Amino Transf (AST/SGOT) 14L, Alanine Aminotransferase (ALT/SGPT) 11L, Alkaline Phosphatase 66, Total Protein 9.1H, Albumin 2.5L, Globulin 6.6, Albumin/Globulin Ratio 0.4L 11/03/17 08:00: Vancomycin Level Trough 9.1 Height (Feet): 5 Height (Inches): 11.00 Weight (Pounds): 191 Objective HEENT: Negative. Extraocular movements are grossly intact. NECK: Supple. LUNGS: With moderate air entry, symmetric. No rhonchi or wheezes. CARDIAC: S1 and S2. Regular rate and rhythm without murmurs, rubs, or gallops. ABDOMEN: Soft, nontender, and nondistended. EXTREMITIES: Left lower extremity with cellulitic changes. SKIN: Redness and some swelling. The patient has some pus noted in the surface with some erythematous changes as well. NEUROLOGIC: Otherwise grossly nonfocal, weak diffusely. Jose Angel Benites MD Nov 03, 2017 10:46
[2017-11-03 12:00] VITALS: BP 120/64
[2017-11-03] MEDS: Vancomycin 500mg/D5W 110ml IVPB SCH ×2 (13:00)
[2017-11-03 16:00] VITALS: BP 117/70
--- NOTE | 2017-11-03 16:35 | Infectious Diseases Prog Note ---
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 continue zosyn and stop vancomycin dde to worsening renal failure, pending blood culture . bone scan showed no evidence of osteomyelitis. await venous doppler to rule DVT in the legs . Continue local wound care and dressing change as per the wound care service team. (2) Left leg cellulitis Assessment & Plan: management is the same as above (3) Venous stasis of lower extremity Assessment & Plan: venous doppler of the legs is negative for acute thrombosis ,arterial doppler showed mild ischemia at rest . keep legs elevated all the time while in bed . (4) AURA (acute kidney injury) Assessment & Plan: could be due to over diuresis , will stop vancomycin , monitor renal function Subjective Constitutional: Reports: no symptoms HEENT: Reports: no symptoms Respiratory: Reports: no symptoms Breasts: Reports: no symptoms Cardiovascular: Reports: no symptoms Gastrointestinal/Abdominal: Reports: no symptoms Genitourinary: Reports: no symptoms Neurologic: Reports: no symptoms Psychiatric: Reports: no symptoms Skin: Reports: ulcer - left medial izzy large wound Endocrine: Reports: no symptoms Hematologic: Reports: no symptoms Musculoskeletal: Reports: no symptoms Allergies: Coded Allergies: NO KNOWN DRUG ALLERGIES (Verified Allergy, Unknown, 10/21/17) Objective Vital Signs Last 24 Hour Vital Signs Date Time Temp Pulse Resp B/P (MAP) Pulse Ox O2 Delivery O2 Flow Rate FiO2 11/03/17 12:00 97.9 66 20 120/64 (82) 100 97.9 11/03/17 09:00 Room Air 11/03/17 08:58 78 123/74 11/03/17 08:57 78 123/74 11/03/17 08:00 97.5 78 18 123/74 (90) 100 97.5 11/03/17 04:49 97.3 78 18 119/66 (83) 98 97.3 11/03/17 00:00 97.9 70 17 116/59 (78) 96 97.9 11/02/17 21:28 70 113/68 11/02/17 21:00 Room Air 11/02/17 20:00 97.5 70 16 113/68 (83) 98 97.5 Height (Feet): 5 Height (Inches): 11.00 Weight (Pounds): 191 General Appearance: WD/WN, no acute distress HEENT: normocephalic, atraumatic, anicteric, mucous membranes moist Respiratory/Chest: chest wall non-tender, lungs clear, normal breath sounds, no respiratory distress, no accessory muscle use Cardiovascular: normal peripheral pulses, normal rate, regular rhythm, no gallop/murmur, no JVD Abdomen: normal bowel sounds, soft, non tender, no organomegaly, non distended , no mass, no scars Genitourinary: normal external genitalia Extremities: no cyanosis, no clubbing, other - left medial ankle large skin wound with red borders and some granulation at the base Skin: no rash, no lesions, ulcers Neurologic/Psychiatric: alert, oriented x 3 Lymphatic: no neck adenopathy, no groin adenopathy Microbiology Date/Time Source Procedure Growth Status 11/01/17 18:00 Blood Blood Culture - Preliminary Resulted 11/01/17 18:00 Blood Blood Culture - Preliminary NO GROWTH AFTER 24 HOURS Resulted 11/01/17 17:45 Wound Gram Stain - Final Resulted 11/01/17 17:45 Wound Culture - Preliminary Gram Negative Bacillus 1 Gram Negative Bacillus 2 Staphylococcus Aureus Diphtheroids Resulted Laboratory Tests Test 11/02/17 17:30 11/03/17 08:00 White Blood Count 5.6 K/UL (4.8-10.8) Red Blood Count 3.66 M/UL (4.70-6.10) L Hemoglobin 10.0 G/DL (14.2-18.0) L Hematocrit 31.6 % (42.0-52.0) L Mean Corpuscular Volume 86 FL (80-99) Mean Corpuscular Hemoglobin 27.3 PG (27.0-31.0) Mean Corpuscular Hemoglobin Concent 31.6 G/DL (32.0-36.0) L Red Cell Distribution Width 15.4 % (11.6-14.8) H Platelet Count 324 K/UL (150-450) Mean Platelet Volume 4.5 FL (6.5-10.1) L Neutrophils (%) (Auto) 63.8 % (45.0-75.0) Lymphocytes (%) (Auto) 17.4 % (20.0-45.0) L Monocytes (%) (Auto) 12.9 % (1.0-10.0) H Eosinophils (%) (Auto) 4.5 % (0.0-3.0) H Basophils (%) (Auto) 1.5 % (0.0-2.0) Sodium Level 134 MMOL/L (136-145) L Potassium Level 3.5 MMOL/L (3.5-5.1) Chloride Level 97 MMOL/L (98-107) L Carbon Dioxide Level 30 MMOL/L (21-32) Anion Gap 7 mmol/L (5-15) Blood Urea Nitrogen 17 mg/dL (7-18) Creatinine 1.5 MG/DL (0.55-1.30) H Estimat Glomerular Filtration Rate mL/min (>60) Glucose Level 128 MG/DL (74-106) H Calcium Level 8.6 MG/DL (8.5-10.1) Total Bilirubin 0.6 MG/DL (0.2-1.0) Aspartate Amino Transf (AST/SGOT) 14 U/L (15-37) L Alanine Aminotransferase (ALT/SGPT) 11 U/L (12-78) L Alkaline Phosphatase 66 U/L (46-116) Total Protein 9.1 G/DL (6.4-8.2) H Albumin 2.5 G/DL (3.4-5.0) L Globulin 6.6 g/dL Albumin/Globulin Ratio 0.4 (1.0-2.7) L Vancomycin Level Trough 9.1 ug/mL (5.0-12.0) Current Medications Medications (Trade) Dose Ordered Sig/Mine Route PRN Reason Start Time Stop Time Status Last Admin Dose Admin Acetaminophen (Tylenol) 650 mg Q4H PRN ORAL Mild Pain/Temp > 100.5 11/01/17 16:15 12/01/17 16:14 Acetaminophen/ Codeine Phosphate (Tylenol #3) 1 tab Q4H PRN ORAL Pain Scale (6-10) 11/01/17 16:15 11/08/17 16:14 11/03/17 08:58 Al Hydroxide/Mg Hydroxide (Mylanta) 30 ml Q4H PRN ORAL INDIGESTION 11/01/17 16:15 12/01/17 16:14 Amlodipine Besylate (Norvasc) 5 mg DAILY ORAL 8/21/18 09:00 12/02/17 08:59 11/02/17 10:37 Ascorbic Acid (Vitamin C) 500 mg DAILY ORAL 11/02/17 09:00 12/02/17 08:59 11/03/17 08:58 Bisacodyl (Dulcolax) 5 mg TIDPRN PRN ORAL Constipation 11/01/17 16:15 12/01/17 16:14 Carvedilol (Coreg) 12.5 mg EVERY 12 HOURS ORAL 11/01/17 21:00 12/01/17 20:59 11/03/17 08:57 Chlorhexidine Gluconate (Jennifer-Hex 2%) 1 applic DAILY@2000 TOPIC 11/02/17 20:00 12/02/17 19:59 11/02/17 21:28 Furosemide (Lasix) 80 mg EVERY 12 HOURS ORAL 11/01/17 21:00 12/01/17 20:59 11/03/17 08:58 Magnesium Hydroxide (Mom) 30 ml DAILYPRN PRN ORAL Constipation 11/01/17 16:15 12/01/17 16:14 Naproxen (Naprosyn) 1 mg Q4H PRN ORAL BREAKTHROUGH PAIN 11/02/17 12:30 12/02/17 12:29 Pantoprazole (Protonix) 40 mg DAILY ORAL 11/02/17 09:00 12/02/17 08:59 11/03/17 08:58 Piperacillin Sod/ Tazobactam Sod 3.375 gm/Sodium Chloride 110 ml @ 27.5 mls/hr Q8H IVPB 11/01/17 17:00 11/08/17 16:59 11/03/17 09:07 Sodium Hypochlorite (Dakin's Quarter Strength) 1 applic Q24H TOPIC 11/03/17 21:00 12/03/17 20:59 11/02/17 21:29 Vancomycin HCl (Vanco rx to dose) 1 ea DAILY PRN MISC Per rx protocol 11/01/17 16:00 12/01/17 15:59 Vancomycin HCl 500 mg/Dextrose 110 ml @ 110 mls/hr Q12H IVPB 11/01/17 21:00 11/06/17 20:59 11/03/17 13:00 Zolpidem Tartrate (Ambien) 5 mg HSPRN PRN ORAL Insomnia 11/01/17 16:15 11/08/17 16:14 Myla Woodall M.D. Nov 03, 2017 16:35
[2017-11-03 20:11] VITALS: BP 118/76
[2017-11-03] MEDS: Dyna-Hex 2% Top Sol 2oz TOPIC SCH (20:25)
[2017-11-04 00:43] VITALS: BP 124/64
[2017-11-04] MEDS: Piperacillin/Tazobactam 3.375 GM in NS 110 ML IVPB SCH ×3 (01:00→16:33)
[2017-11-04 04:17] VITALS: BP 144/89
[2017-11-04] MEDS: Tylenol #3 tab (300mg/30mg) ORAL PRN ×3 (04:24→23:44)
[2017-11-04] MEDS: Dakin's 0.125% Soln (Quarter Strength) 16oz TOPIC SCH (05:12)
[2017-11-04 08:00] VITALS: BP 111/65
--- NOTE | 2017-11-04 08:44 | General Progress Note ---
Assessment/Plan Assessment/Plan IMPRESSION: 1. Cellulitis, possible deep seated wound infection 2. Anemia. 3. Acute renal failure. 4. Advanced age. 5. Hypertension. 6. Hyponatremia. 7. Hypoglycemia. PLAN care noted wound care noted still needs further ID follow up noted- final antibiotic rx pain control monitor for change monitor renal function impression, plan, and exam edited and reviewed in detail care discussed with RN Subjective Allergies: Coded Allergies: NO KNOWN DRUG ALLERGIES (Verified Allergy, Unknown, 10/21/17) Subjective care noted has pain intermittent agitation Objective Last 24 Hour Vital Signs Date Time Temp Pulse Resp B/P (MAP) Pulse Ox O2 Delivery O2 Flow Rate FiO2 11/04/17 08:00 97.3 74 20 111/65 (80) 100 97.3 11/04/17 05:23 97.7 11/04/17 04:24 97.7 11/04/17 04:17 97.7 72 18 144/89 (107) 93 97.7 11/04/17 00:43 97.2 78 18 124/64 (84) 99 97.2 11/03/17 22:01 Room Air 11/03/17 20:28 97.3 11/03/17 20:25 81 118/76 11/03/17 20:11 97.3 81 17 118/76 (90) 97 97.3 11/03/17 16:00 97.8 69 19 117/70 (86) 100 97.8 11/03/17 12:00 97.9 66 20 120/64 (82) 100 97.9 11/03/17 09:00 Room Air 11/03/17 08:58 78 123/74 11/03/17 08:57 78 123/74 Intake and Output 11/03/17 11/04/17 19:00 07:00 Intake Total 800.0 ml 432.53 ml Output Total 1500 ml 400 ml Balance -700.0 ml 32.53 ml Intake Oral 580 ml 240 ml IV Total 220.0 ml 192.53 ml Output Urine Total 1500 ml 400 ml # Bowel Movements 1 Height (Feet): 5 Height (Inches): 11.00 Weight (Pounds): 191 Objective HEENT: Negative. Extraocular movements are grossly intact. NECK: Supple. LUNGS: With moderate air entry, symmetric. No rhonchi or wheezes. CARDIAC: S1 and S2. Regular rate and rhythm without murmurs, rubs, or gallops. ABDOMEN: Soft, nontender, and nondistended. EXTREMITIES: Left lower extremity with cellulitic changes. SKIN: Redness and some swelling. The patient has some pus noted in the surface with some erythematous changes as well. NEUROLOGIC: Otherwise grossly nonfocal, weak diffusely. Jose Angel Benites MD Nov 04, 2017 08:44
[2017-11-04] MEDS: Furosemide 80mg tab ORAL SCH ×2 (08:46→20:43)
[2017-11-04] MEDS: Ascorbic Acid 500mg tab ORAL SCH (08:46)
[2017-11-04] MEDS: Carvedilol 12.5mg tab ORAL SCH ×2 (08:53→20:43)
[2017-11-04 11:49] VITALS: BP 146/71
[2017-11-04 14:49] LABS: ANION GAP 8 mmol/L (5-15); BLOOD UREA NITROGEN 13 mg/dL (7-18); CALCIUM 8.6 MG/DL (8.5-10.1); CARBON DIOXIDE 30 MMOL/L (21-32); CHLORIDE 96 MMOL/L (98-107); CREATININE 1.7 MG/DL (0.55-1.30); POTASSIUM 3.5 MMOL/L (3.5-5.1); SODIUM 134 MMOL/L (136-145)
[2017-11-04 16:00] VITALS: BP 119/66
--- NOTE | 2017-11-04 16:12 | Infectious Diseases Prog Note ---
Assessment/Plan Problems: (1) Leg wound, left Assessment & Plan: chronic, nonhealing with infection due to multiple organisms including Morganella morgagnii, proteus terry and enterococcus faecalis most likely real since grew from deep tissue biopsy culture .wound swab here showed MRSA which is most likely colonization continue zosyn for 2-4 weeks depending on his clinical improvement , continue porter boot as per wound care service . bone scan showed no evidence of osteomyelitis. venous doppler ruled out DVT in the legs . Continue local wound care and dressing change as per the wound care service team. (2) Left leg cellulitis Assessment & Plan: management is the same as above (3) Venous stasis of lower extremity Assessment & Plan: venous doppler of the legs is negative for acute thrombosis ,arterial doppler showed mild ischemia at rest . keep legs elevated all the time while in bed . (4) AURA (acute kidney injury) Assessment & Plan: could be due to over diuresis , will stop vancomycin , monitor renal function (5) Coag negative Staphylococcus bacteremia Assessment & Plan: most likely contaminant, grew from one set only Subjective Constitutional: Reports: no symptoms HEENT: Reports: no symptoms Respiratory: Reports: no symptoms Breasts: Reports: no symptoms Cardiovascular: Reports: no symptoms Gastrointestinal/Abdominal: Reports: no symptoms Genitourinary: Reports: no symptoms Neurologic: Reports: no symptoms Psychiatric: Reports: no symptoms Skin: Reports: ulcer Endocrine: Reports: no symptoms Hematologic: Reports: no symptoms Musculoskeletal: Reports: no symptoms Allergies: Coded Allergies: NO KNOWN DRUG ALLERGIES (Verified Allergy, Unknown, 10/21/17) Subjective he was comfortable lying in bed, awake and alert, denied any leg pain or significant drainage Objective Vital Signs Last 24 Hour Vital Signs Date Time Temp Pulse Resp B/P (MAP) Pulse Ox O2 Delivery O2 Flow Rate FiO2 11/04/17 11:49 97.5 80 18 146/71 (96) 98 97.5 11/04/17 09:00 Room Air 11/04/17 08:53 74 111/65 11/04/17 08:53 74 111/65 11/04/17 08:00 97.3 74 20 111/65 (80) 100 97.3 11/04/17 05:23 97.7 11/04/17 04:24 97.7 11/04/17 04:17 97.7 72 18 144/89 (107) 93 97.7 11/04/17 00:43 97.2 78 18 124/64 (84) 99 97.2 11/03/17 22:01 Room Air 11/03/17 20:28 97.3 11/03/17 20:25 81 118/76 11/03/17 20:11 97.3 81 17 118/76 (90) 97 97.3 Height (Feet): 5 Height (Inches): 11.00 Weight (Pounds): 191 General Appearance: WD/WN, no acute distress HEENT: normocephalic, atraumatic, anicteric, mucous membranes moist, EOMI, pharynx normal, supple Respiratory/Chest: chest wall non-tender, lungs clear, normal breath sounds, no respiratory distress, no accessory muscle use Cardiovascular: normal peripheral pulses, normal rate, regular rhythm, no gallop/murmur, no JVD Abdomen: normal bowel sounds, soft, non tender, no organomegaly, non distended , no mass, no scars Extremities: no cyanosis, no clubbing Skin: no rash, no lesions, no ulcers, ulcers - left medial lower leg and ankle wound with exudates and mild drainage Neurologic/Psychiatric: alert, oriented x 3 Lymphatic: no neck adenopathy, no groin adenopathy Musculoskeletal: normal muscle bulk, no effusion Microbiology Date/Time Source Procedure Growth Status 11/01/17 18:00 Blood Blood Culture - Preliminary Staphylococcus Sp Coag Neg Resulted 11/01/17 18:00 Blood Blood Culture - Preliminary NO GROWTH AFTER 48 HOURS Resulted 11/01/17 17:45 Wound Gram Stain - Final Resulted 11/01/17 17:45 Wound Culture - Preliminary Gram Negative Bacillus 1 Enterobacter Cloacae Complex Staphylococcus Aureus - Mrsa Diphtheroids Resulted Laboratory Tests Test 11/04/17 15:00 Sodium Level 134 MMOL/L (136-145) L Potassium Level 3.5 MMOL/L (3.5-5.1) Chloride Level 96 MMOL/L (98-107) L Carbon Dioxide Level 30 MMOL/L (21-32) Anion Gap 8 mmol/L (5-15) Blood Urea Nitrogen 13 mg/dL (7-18) Creatinine 1.7 MG/DL (0.55-1.30) H Estimat Glomerular Filtration Rate mL/min (>60) Glucose Level 205 MG/DL (74-106) H Calcium Level 8.6 MG/DL (8.5-10.1) Current Medications Medications (Trade) Dose Ordered Sig/Mine Route PRN Reason Start Time Stop Time Status Last Admin Dose Admin Acetaminophen (Tylenol) 650 mg Q4H PRN ORAL Mild Pain/Temp > 100.5 11/01/17 16:15 12/01/17 16:14 Acetaminophen/ Codeine Phosphate (Tylenol #3) 1 tab Q4H PRN ORAL Pain Scale (6-10) 11/01/17 16:15 11/08/17 16:14 11/04/17 13:22 Al Hydroxide/Mg Hydroxide (Mylanta) 30 ml Q4H PRN ORAL INDIGESTION 11/01/17 16:15 12/01/17 16:14 Amlodipine Besylate (Norvasc) 5 mg DAILY ORAL 11/02/17 09:00 12/02/17 08:59 11/02/17 10:37 Ascorbic Acid (Vitamin C) 500 mg DAILY ORAL 11/02/17 09:00 12/02/17 08:59 11/04/17 08:46 Bisacodyl (Dulcolax) 5 mg TIDPRN PRN ORAL Constipation 11/01/17 16:15 12/01/17 16:14 11/03/17 20:25 Carvedilol (Coreg) 12.5 mg EVERY 12 HOURS ORAL 11/01/17 21:00 12/01/17 20:59 11/03/17 20:25 Chlorhexidine Gluconate (Jennifer-Hex 2%) 1 applic DAILY@2000 TOPIC 11/02/17 20:00 12/02/17 19:59 11/03/17 20:25 Furosemide (Lasix) 80 mg EVERY 12 HOURS ORAL 11/01/17 21:00 12/01/17 20:59 11/04/17 08:46 Magnesium Hydroxide (Mom) 30 ml DAILYPRN PRN ORAL Constipation 11/01/17 16:15 12/01/17 16:14 Naproxen (Naprosyn) 1 mg Q4H PRN ORAL BREAKTHROUGH PAIN 11/02/17 12:30 12/02/17 12:29 Pantoprazole (Protonix) 40 mg DAILY ORAL 11/02/17 09:00 12/02/17 08:59 11/04/17 08:46 Piperacillin Sod/ Tazobactam Sod 3.375 gm/Sodium Chloride 110 ml @ 27.5 mls/hr Q8H IVPB 11/01/17 17:00 11/08/17 16:59 11/04/17 08:52 Sodium Hypochlorite (Dakin's Quarter Strength) 1 applic Q24H TOPIC 11/03/17 21:00 12/03/17 20:59 11/04/17 05:12 Zolpidem Tartrate (Ambien) 5 mg HSPRN PRN ORAL Insomnia 11/01/17 16:15 11/08/17 16:14 Myla Woodall M.D. Nov 04, 2017 16:12
[2017-11-04 20:00] VITALS: BP 104/52
[2017-11-04] MEDS: Dyna-Hex 2% Top Sol 2oz TOPIC SCH (20:44)
[2017-11-05] VITALS (7 sets, daily range): BP systolic 108–125; BP diastolic 59–86
[2017-11-05] MEDS: Piperacillin/Tazobactam 3.375 GM in NS 110 ML IVPB SCH ×3 (01:00→16:53)
[2017-11-05] MEDS: Tylenol #3 tab (300mg/30mg) ORAL PRN (05:00)
[2017-11-05] MEDS: Dakin's 0.125% Soln (Quarter Strength) 16oz TOPIC SCH (05:01)
--- NOTE | 2017-11-05 08:16 | General Progress Note ---
Assessment/Plan Assessment/Plan IMPRESSION: 1. Cellulitis, possible deep seated wound infection 2. Anemia. 3. Acute renal failure. 4. Advanced age. 5. Hypertension. 6. Hyponatremia. 7. Hypoglycemia. PLAN care noted wound care as is ID follow up noted- final antibiotic rx pain control monitor for change monitor renal function snf discharge pending placement location impression, plan, and exam edited and reviewed in detail care discussed with RN Subjective Allergies: Coded Allergies: NO KNOWN DRUG ALLERGIES (Verified Allergy, Unknown, 10/21/17) Subjective care noted d/w family want snf Objective Last 24 Hour Vital Signs Date Time Temp Pulse Resp B/P (MAP) Pulse Ox O2 Delivery O2 Flow Rate FiO2 11/05/17 04:00 97.4 81 20 115/67 (83) 97 97.4 11/05/17 00:00 97.5 76 19 124/74 (91) 97 97.5 11/04/17 21:00 Room Air 11/04/17 20:43 80 104/52 11/04/17 20:00 97.0 80 18 104/52 (69) 97 97.0 80 11/04/17 16:00 98.0 84 20 119/66 (83) 97 98.0 11/04/17 11:49 97.5 80 18 146/71 (96) 98 97.5 11/04/17 09:00 Room Air 11/04/17 08:53 74 111/65 11/04/17 08:53 74 111/65 Intake and Output 11/04/17 11/05/17 19:00 07:00 Intake Total 665.0 ml 665.0 ml Balance 665.0 ml 665.0 ml Intake Oral 500 ml 500 ml IV Total 165.0 ml 165.0 ml # Voids 6 6 # Bowel Movements 1 Laboratory Tests 11/04/17 15:00: Sodium Level 134L, Potassium Level 3.5, Chloride Level 96L, Carbon Dioxide Level 30, Anion Gap 8, Blood Urea Nitrogen 13, Creatinine 1.7H, Estimat Glomerular Filtration Rate , Glucose Level 205H, Calcium Level 8.6 Height (Feet): 5 Height (Inches): 11.00 Weight (Pounds): 191 Objective HEENT: Negative. Extraocular movements are grossly intact. NECK: Supple. LUNGS: With moderate air entry, symmetric. No rhonchi or wheezes. CARDIAC: S1 and S2. Regular rate and rhythm without murmurs, rubs, or gallops. ABDOMEN: Soft, nontender, and nondistended. EXTREMITIES: Left lower extremity with cellulitic changes. SKIN: Redness and some swelling. mild edema NEUROLOGIC: Otherwise grossly nonfocal, weak diffusely. Jose Angel Benites MD Nov 05, 2017 08:16
[2017-11-05] MEDS: Furosemide 80mg tab ORAL SCH ×2 (08:42→20:36)
[2017-11-05] MEDS: Ascorbic Acid 500mg tab ORAL SCH (08:42)
[2017-11-05] MEDS: Carvedilol 12.5mg tab ORAL SCH ×2 (09:00→20:36)
--- NOTE | 2017-11-05 14:07 | Infectious Diseases Prog Note ---
Assessment/Plan Problems: (1) Leg wound, left Assessment & Plan: chronic, nonhealing with infection due to multiple organisms including Morganella morgagnii, proteus terry and enterococcus faecalis most likely real since grew from deep tissue biopsy culture .wound swab here showed MRSA which is most likely colonization RECOMMENDATIONS: 1. continue zosyn for 4 weeks to treat for left leg wound infection 2. continue porter boot as per wound care service team . 3. continue local wound care and dressing change as per the wound care service team. 4. monitor weekly labs with CBC, and CMP while on antibiotics will follow in wound care clinic as needed (2) Left leg cellulitis Assessment & Plan: management is the same as above (3) Venous stasis of lower extremity Assessment & Plan: venous doppler of the legs is negative for acute thrombosis ,arterial doppler showed mild ischemia at rest . keep legs elevated all the time while in bed . (4) AURA (acute kidney injury) Assessment & Plan: could be due to over diuresis , will stop vancomycin , monitor renal function (5) Coag negative Staphylococcus bacteremia Assessment & Plan: most likely contaminant, grew from one set only Subjective Constitutional: Reports: no symptoms HEENT: Reports: no symptoms Respiratory: Reports: no symptoms Breasts: Reports: no symptoms Cardiovascular: Reports: no symptoms Gastrointestinal/Abdominal: Reports: no symptoms Genitourinary: Reports: no symptoms Neurologic: Reports: no symptoms Psychiatric: Reports: no symptoms Skin: Reports: ulcer Endocrine: Reports: no symptoms Hematologic: Reports: no symptoms Musculoskeletal: Reports: pain Allergies: Coded Allergies: NO KNOWN DRUG ALLERGIES (Verified Allergy, Unknown, 10/21/17) Subjective he was comfortable lying in bed, awake and alert, no fever or chills , no diarrhea , complained of left leg pain Objective Vital Signs Last 24 Hour Vital Signs Date Time Temp Pulse Resp B/P (MAP) Pulse Ox O2 Delivery O2 Flow Rate FiO2 11/05/17 12:02 98.0 70 20 110/62 (78) 98 98.0 11/05/17 09:00 Room Air 11/05/17 09:00 74 108/59 11/05/17 09:00 74 108/59 11/05/17 08:56 97.3 74 20 108/59 (75) 98 97.3 11/05/17 04:00 97.4 81 20 115/67 (83) 97 97.4 11/05/17 00:00 97.5 76 19 124/74 (91) 97 97.5 11/04/17 21:00 Room Air 11/04/17 20:43 80 104/52 11/04/17 20:00 97.0 80 18 104/52 (69) 97 97.0 80 11/04/17 16:00 98.0 84 20 119/66 (83) 97 98.0 Height (Feet): 5 Height (Inches): 11.00 Weight (Pounds): 191 General Appearance: WD/WN, no acute distress HEENT: normocephalic, atraumatic, anicteric, mucous membranes moist, EOMI, pharynx normal, supple, no JVD Respiratory/Chest: chest wall non-tender, lungs clear, normal breath sounds, no respiratory distress, no accessory muscle use, decreased breath sounds Cardiovascular: normal peripheral pulses, normal rate, regular rhythm, regularly irregular, no JVD Abdomen: normal bowel sounds, soft, non tender, no organomegaly, non distended , no mass, no scars Extremities: no cyanosis, no clubbing Skin: no rash, no lesions, ulcers Neurologic/Psychiatric: alert, oriented x 3, responsive Lymphatic: no neck adenopathy, no groin adenopathy Musculoskeletal: normal muscle bulk, no effusion Laboratory Tests Test 11/04/17 15:00 Sodium Level 134 MMOL/L (136-145) L Potassium Level 3.5 MMOL/L (3.5-5.1) Chloride Level 96 MMOL/L (98-107) L Carbon Dioxide Level 30 MMOL/L (21-32) Anion Gap 8 mmol/L (5-15) Blood Urea Nitrogen 13 mg/dL (7-18) Creatinine 1.7 MG/DL (0.55-1.30) H Estimat Glomerular Filtration Rate mL/min (>60) Glucose Level 205 MG/DL (74-106) H Calcium Level 8.6 MG/DL (8.5-10.1) Current Medications Medications (Trade) Dose Ordered Sig/Mine Route PRN Reason Start Time Stop Time Status Last Admin Dose Admin Acetaminophen (Tylenol) 650 mg Q4H PRN ORAL Mild Pain/Temp > 100.5 11/01/17 16:15 12/01/17 16:14 Acetaminophen/ Codeine Phosphate (Tylenol #3) 1 tab Q4H PRN ORAL Pain Scale (6-10) 11/01/17 16:15 11/08/17 16:14 11/05/17 05:00 Al Hydroxide/Mg Hydroxide (Mylanta) 30 ml Q4H PRN ORAL INDIGESTION 11/01/17 16:15 12/01/17 16:14 Amlodipine Besylate (Norvasc) 5 mg DAILY ORAL 11/02/17 09:00 12/02/17 08:59 11/02/17 10:37 Ascorbic Acid (Vitamin C) 500 mg DAILY ORAL 11/02/17 09:00 12/02/17 08:59 11/05/17 08:42 Bisacodyl (Dulcolax) 5 mg TIDPRN PRN ORAL Constipation 11/01/17 16:15 12/01/17 16:14 11/03/17 20:25 Carvedilol (Coreg) 12.5 mg EVERY 12 HOURS ORAL 11/01/17 21:00 12/01/17 20:59 11/05/17 09:00 Chlorhexidine Gluconate (Jennifer-Hex 2%) 1 applic DAILY@2000 TOPIC 11/02/17 20:00 12/02/17 19:59 11/04/17 20:44 Furosemide (Lasix) 80 mg EVERY 12 HOURS ORAL 11/01/17 21:00 12/01/17 20:59 11/05/17 08:42 Magnesium Hydroxide (Mom) 30 ml DAILYPRN PRN ORAL Constipation 11/01/17 16:15 12/01/17 16:14 Naproxen (Naprosyn) 1 mg Q4H PRN ORAL BREAKTHROUGH PAIN 11/02/17 12:30 12/02/17 12:29 Pantoprazole (Protonix) 40 mg DAILY ORAL 11/02/17 09:00 12/02/17 08:59 11/05/17 08:42 Piperacillin Sod/ Tazobactam Sod 3.375 gm/Sodium Chloride 110 ml @ 27.5 mls/hr Q8H IVPB 11/01/17 17:00 11/08/17 16:59 11/05/17 08:44 Sodium Hypochlorite (Dakin's Quarter Strength) 1 applic Q24H TOPIC 11/03/17 21:00 12/03/17 20:59 11/05/17 05:01 Zolpidem Tartrate (Ambien) 5 mg HSPRN PRN ORAL Insomnia 11/01/17 16:15 11/08/17 16:14 Myla Woodall M.D. Nov 05, 2017 14:07
--- NOTE | 2017-11-05 14:27 | Diagnostic Imaging Report ---
Indication: Chest pain Technique: One view of the chest Comparison: none Findings: There is a left chest biventricular AICD noted. There is equivocal mild interstitial congestion. The heart is borderline enlarged. The pleural spaces are clear. No focal airspace consolidation. Impression: Poorly cardiomegaly Equivocal mild interstitial congestion
[2017-11-05 16:15] LABS: ANION GAP 9 mmol/L (5-15); BLOOD UREA NITROGEN 10 mg/dL (7-18); CALCIUM 8.8 MG/DL (8.5-10.1); CARBON DIOXIDE 31 MMOL/L (21-32); CHLORIDE 94 MMOL/L (98-107); CREATININE 1.4 MG/DL (0.55-1.30); POTASSIUM 3.3 MMOL/L (3.5-5.1); SODIUM 134 MMOL/L (136-145)
[2017-11-05] MEDS ORDERED: traMADol 50mg tab ORAL PRN (16:25)
[2017-11-05] MEDS ORDERED: NS 275ml ONE (16:59)
[2017-11-05] MEDS ORDERED: BISACODYL5 MG ORAL (17:25)
[2017-11-05] MEDS ORDERED: AMBIEN5 MG ORAL (17:26)
[2017-11-05] MEDS ORDERED: TRAMADOL HCL50 MG ORAL (17:28)
[2017-11-05] MEDS ORDERED: DAKIN'S1 APPLIC TOPIC (17:29)
[2017-11-05] MEDS ORDERED: PROTONIX40 MG ORAL (17:30)
[2017-11-05] MEDS ORDERED: ZOSYN 3.373.375 GM/1 IVPB (17:30)
[2017-11-05] MEDS ORDERED: MILK OF MA400 MG/51 ORAL (17:31)
[2017-11-05] MEDS ORDERED: MYLANTA30 M1 PO (17:34)
[2017-11-05] MEDS ORDERED: NAPROXEN250 M1 PO (17:35)
--- NOTE | 2017-11-05 18:29 | General Progress Note ---
Assessment/Plan Status: stable, progressing Assessment/Plan Patient with LLE venous stasis ulcer. Will continue dressing changes but can switch to Alginate and UNNA boots when transferred to SNF. He will be discharged today to SNF to complete IV antibiotics and once he is home will arrange for f/u back at the outpatient wound center. Subjective Date patient seen: Nov 05, 2017 Time patient seen: 18:25 ROS Limited/Unobtainable: No Constitutional: Reports: no symptoms HEENT: Reports: no symptoms Cardiovascular: Reports: no symptoms Respiratory: Reports: no symptoms Gastrointestinal/Abdominal: Reports: no symptoms Allergies: Coded Allergies: NO KNOWN DRUG ALLERGIES (Verified Allergy, Unknown, 10/21/17) Subjective Follow up evaluation on patient with chronic LLE ulcer. He was admitted for wound infection. He is on IV zosyn and will be on it for 4 weeks. His arterial doppler showed only mild ischemia in LLE. He has no leukocytosis. He states he has pain in the LLE ulcer but it is less than a few days ago. Objective Last 24 Hour Vital Signs Date Time Temp Pulse Resp B/P (MAP) Pulse Ox O2 Delivery O2 Flow Rate FiO2 11/05/17 17:52 98.0 11/05/17 16:00 97.0 93 19 125/86 (99) 98 97.0 11/05/17 12:02 98.0 70 20 110/62 (78) 98 98.0 11/05/17 09:00 Room Air 11/05/17 09:00 74 108/59 11/05/17 09:00 74 108/59 11/05/17 08:56 97.3 74 20 108/59 (75) 98 97.3 11/05/17 04:00 97.4 81 20 115/67 (83) 97 97.4 11/05/17 00:00 97.5 76 19 124/74 (91) 97 97.5 11/04/17 21:00 Room Air 11/04/17 20:43 80 104/52 11/04/17 20:00 97.0 80 18 104/52 (69) 97 97.0 80 Intake and Output 11/04/17 11/05/17 19:00 07:00 Intake Total 665.0 ml 665.0 ml Balance 665.0 ml 665.0 ml Intake Oral 500 ml 500 ml IV Total 165.0 ml 165.0 ml # Voids 6 6 # Bowel Movements 1 Laboratory Tests 11/05/17 14:50: Sodium Level 134L, Potassium Level 3.3L, Chloride Level 94L, Carbon Dioxide Level 31, Anion Gap 9, Blood Urea Nitrogen 10, Creatinine 1.4H, Estimat Glomerular Filtration Rate , Glucose Level 157H, Calcium Level 8.8 Height (Feet): 5 Height (Inches): 11.00 Weight (Pounds): 191 General Appearance: no apparent distress, alert Extremities: other - Significant decrease in LLE swelling Edema: mild edema Skin: other - Ulcer of lle with some fibrotic debris at the base but no necrotic tissue and no slough. No odor. Periskin with no erythema or warmth. Some dry skin. Og Pena MD Nov 05, 2017 18:29
[2017-11-05] MEDS: Dyna-Hex 2% Top Sol 2oz TOPIC SCH (20:37)
--- NOTE | 2017-11-05 23:45 | Progress Note ---
DATE: 11/05/2017 CARDIOLOGY PROGRESS NOTE SUBJECTIVE: The patient has no chest pain, palpitations, or shortness of breath. No episodes of loss of consciousness noted. The patient states that his defibrillator is a [employer] type. It was placed about 8 years ago. About a year ago, he was told that the battery was . He did see a acid purifier, but did not have it replaced because of some problem with his leg presumably an infection at that time. OBJECTIVE: VITAL SIGNS: Blood pressure of 108/59, pulse 74, and respirations 18. NECK: Supple. Jugular venous pressure normal. LUNGS: Clear. CARDIAC: Irregularly irregular. Normal S1, S2. A 1/6 systolic murmur at apex. ABDOMEN: Soft. EXTREMITIES: No edema. Wound site has dressing in place. DIAGNOSTIC DATA: EKG reveals atrial fibrillation, rate controlled, nonspecific ST changes. IMPRESSION: 1. Cellulitis with possible deep tissue infection. 2. Cardiomyopathy of unclear etiology. 3. Cardiac defibrillator. 4. Paroxysmal atrial fibrillation. PLAN: 1. Echocardiogram. 2. Optimize anti-failure regimen. 3. We will attempt to expand database. 4. We would defer any intervention unless if urgent until infection has cleared. Howard Moore M.D. DR: ADAIR JOB#: [id number] CC:
--- NOTE | 2017-11-07 09:41 | Discharge Summary ---
Discharge Summary Discharge Summary _ DATE OF ADMISSION: 11/01/2017 DATE OF DISCHARGE: 11/05/2017 REASON FOR ADMISSION: 82 years old male with past medical history of hypertension and chronic venous stasis left lower extremity, was cared at the wound care center . He was noted to have infected wound. He was brought to the hospital for direct admission due to nonhealing infected wound. BU 21, creatinine 1.4 No leukocytosis Sodium 132 Mild anemia with hemoglobin 10.5 and hematocrit 32.6. Patient admitted with diagnosis of cellulitis left leg ,possible deep wound infection; acute renal failure, anemia, hypertension, hyponatremia, advanced age. CONSULTANTS: city [facility] Dr. Moore ID specialist Dr. Woodall plastic surgery Dr. Mccartney [facility] COURSE: Patient admitted. Patient started on empiric antibiotics. ID specialist clsoely followed. Wound culture revealed Morganella, Enterobacter and MRSA. Blood culture 1 out of 4 grew Staphylococcus coagulase negative , likely contaminant as per ID specialist. Antibiotic regimen was optimized based on sensitivity as per ID specialist recommendations. Patient will need to complete the course of antibiotics at the [facility] facility. Plastic surgeon seen and evaluated patient. Wound care provided as per plastic surgeon recommendations. Left leg was elevated. Antibiotics were continued. Plastic surgeon recommended SNF placement f to complete antibiotic course and continue with wound care. No urgent surgical intervention was necessary at this time. Venous duplex bilateral lower extremities revealed chronic thrombosis in left lower extremity superficial femoral vein, no acute DVT in bilateral lower extremities was noted. Chest x-ray showed mild interstitial congestion and AICD. Hot Strip Finisher seen and evaluated the patient. Patient had evidence of paroxysmal atrial fibrillation. Anti-failure medication regimen was continued with diuretic and beta ricardo. Cardiorenal parameters and volumes were closely monitored. Electrolytes corrected as needed. Sodium up to 134 prior to discharge. Heart rate was stable. According to [facility] , cardiomyopathy was of unknown etiology. Patient did not appear to be decompensated. Blood pressure was managed with calcium channel ricardo along with diuretic and beta ricardo and remained stable. ECHO was recommend by [facility], can be done as outpatient. DVT and GI prophylaxis provided. Bowel regimen instituted. Pain management was addressed. Hemoglobin and hematocrit were closely monitored with goal to keep hemoglobin above 7 , and remained at the baseline. Renal parameters were clsoely monitored, remained at the same range. Patient clinically improved and was stable for discharge to [facility] facility for continuation of care FINAL DIAGNOSES: Left leg cellulitis Left lower extremity venous stasis ulcer Acute kidney injury Anemia Hypertension Cardiomyopathy of unclear etiology Paroxysmal atrial fibrillation AICD Advanced age Hyponatremia DISCHARGE MEDICATIONS: See Medication Reconciliation list. DISCHARGE INSTRUCTIONS: Patient was discharged to the [facility] facility. Follow up with medical doctor at the facility. I have been assigned to dictate discharge summary for this account. I was not involved in the patient's management. Maria Isabel Cerrato NP Nov 07, 2017 09:41
== END 2017-11-05 21:05 | DRG 603 ==
LOC: 4W 14:22
DX: L03.116 Cellulitis of left lower limb (principal); N17.9 Acute kidney failure, unspecified; E87.1 Hypo-osmolality and hyponatremia; L97.329 Non-pressure chronic ulcer of left ankle with unspecified severity; I87.2 Venous insufficiency (chronic) (peripheral); D64.9 Anemia, unspecified; I10 Essential (primary) hypertension; E16.2 Hypoglycemia, unspecified; B95.2 Enterococcus as the cause of diseases classified elsewhere; B96.4 Proteus (mirabilis) (morganii) as the cause of diseases classified elsewhere; B96.89 Other specified bacterial agents as the cause of diseases classified elsewhere; I48.0 Paroxysmal atrial fibrillation
CPT/HCPCS: 36415; 71045; 80048; 80053; 80202; 85025; 85651; 86140; 87040; 87070; 87181; 87205; 93005; 93925; 93970; J8499